=== PATIENT | male | born 1950 | race Caucasian/White ===

== ENCOUNTER 2016-08-02 10:53 | Emergency (ER) | payer OTHER ==
[~2016-08-02] VITALS: Ht 170.2 cm; Wt 82.5 kg
[~2016-08-02 10:53] MED LIST: CIPR500T4 PO; DIAZ10TA4 PO; DIPH1TAB25 PO; METH10TA5 PO; METR500T PO; PANT40TA3 PO; PANT40TA4 PO; TAMS-14 PO
[2016-08-02 11:03] VITALS: Ht 170.2 cm; Wt 82.5 kg
[2016-08-02 12:12] LABS: ADD UMIC NO; URINE BILIRUBIN (Dip) NEGATIVE (NEGATIVE); URINE BLOOD (Dip) NEGATIVE (NEGATIVE); URINE COLOR YELLOW (YELLOW); URINE GLUCOSE (Dip) NEGATIVE (NEGATIVE); URINE KETONES (Dip) NEGATIVE (NEGATIVE); URINE LEUKOCYTE ESTERASE (Dip) NEGATIVE (NEGATIVE); URINE NITRITE (Dip) NEGATIVE (NEGATIVE); URINE TOTAL PROTEIN (Dip) NEGATIVE (NEGATIVE); URINE UROBILINOGEN (Dip) 0.2 E.U./dL (0.1-1.0)
--- NOTE | 2016-08-02 13:07 | RADRPT ---
PROCEDURE: Scrotal ultrasound CLINICAL INDICATION: Bilateral testicular pain. TECHNIQUE: Scrotal ultrasound was performed with sagittal and transverse views. Jarquin scale and co jennifer imaging was performed. Images were reviewed on high resolution PACS monitors. COMPARISON: None available FINDINGS: The right testicle measures 4.3 x 2.3 x 3.1 cm. The left testicle measures 3.8 x 1.8 x 2.6 cm. There is normal size and echogenicity and morphology bilaterally. There is normal blood flow seen bilaterally. The epididymi are normal. There is a trace hydrocele on the right. There is a left-sided varicocele. The soft tissues are unremarkable. No mass or cyst or other abnormality is seen. IMPRESSION: 1. Left-sided varicocele. 2. Trace right hydrocele. 3. Symmetrically normal testes and epididymi. RPTAT: [facility] Physician Rodger Date Time Electronically viewed and signed by Physician Rodger on 08/02/2016 13:07 /
[2016-08-02] MEDS ORDERED: ACET500C5 PO (13:12)
[2016-08-02] MEDS ORDERED: DOXY100T20 PO (13:12)
--- NOTE | 2016-08-02 13:15 | ERD ---
ER Documentation Chief Complaint Date/Time DATE: 08/02/16 TIME: 13:13 Chief Complaint testicular swelling & pain x1mth, tx with abx while in [place]. HPI This 66-year-old male complains of intermittent pain in his right testicle for the last month. He was treated with antibiotics while visiting [place]. Did not have an ultrasound. Pain is intermittent with some possible swelling. Patient has multiple complaints and has additional complaints of some numbness or paresthesias in his right upper extremity extending from his neck. He denies any weakness or bowel bladder incontinence, history of trauma. The pain radiates slightly up the back of his head. She denies any dysuria or penile discharge. ROS All systems reviewed and are negative except as per history of present illness. Medications Home Meds Active Scripts Acetaminophen* (Tylophen*) 500 Mg Capsule, 1 CAP PO Q6H Y for PAIN AND OR ELEVATED TEMP, #20 CAP Prov:CORBIN ISLAS MD 08/02/16 Doxycycline Hyclate* (Doxycycline Hyclate*) 100 Mg Tablet.dr, 100 MG PO BID for 10 Days, TAB Prov:CORBIN ISLAS MD 08/02/16 Pantoprazole* (Protonix*) 40 Mg Tablet.dr, 40 MG PO DAILY, #30 TAB Prov:CASSANDRA LEUNG 10/13/15 Diphenoxylate Hcl-Atropine* (Lomotil*) 1 Tab Tab, 1 TAB PO QID Y for DIARRHEA, # 10 TAB Prov:CASSANDRA LEUNG 10/13/15 Metronidazole* (Flagyl*) 500 Mg Tablet, 500 MG PO TID for 10 Days, TAB Prov:CASSANDRA LEUNG 10/13/15 Ciprofloxacin Hcl* (Ciprofloxacin Hcl*) 500 Mg Tablet, 500 MG PO BID for 10 Days , TAB Prov:CASSANDRA LEUNG 10/13/15 Pantoprazole (Protonix) 40 Mg Tabec, 40 MG PO DAILY for 14 Days, TAB Prov:AMAURY TATE MD 09/29/15 Reported Medications Diazepam* (Diazepam*) 10 Mg Tablet, 10 MG PO DAILY Y for ANXIETY, TAB 09/29/15 Tamsulosin Hcl* (Flomax*) 0.4 Mg Cap.er.24h, 0.4 MG PO DAILY, CAP 7/15/16 Methimazole* (Methimazole*) 10 Mg Tablet, 10 MG PO DAILY, TAB 09/29/15 Allergies Allergies: Coded Allergies: No Known Allergy (Unverified , 09/29/15) PMhx/Soc History of Surgery: Yes (ARM) Anesthesia Reaction: No Hx Neurological Disorder: No Hx Respiratory Disorders: No Hx Cardiac Disorders: Yes (HTN) Hx Miscellaneous Medical Probl: Yes (GASTRIC CRAMPING-IBS, HYPERTHYROID) Hx Alcohol Use: No Hx Substance Use: No Hx Tobacco Use: Yes Smoking Status: Light tobacco smoker Physical Exam Vitals Vital Signs Date Time Temp Pulse Resp B/P Pulse Ox O2 Delivery O2 Flow Rate FiO2 08/02/16 11:03 97.7 88 20 134/91 98 Physical Exam Const: [] Alert, not ill-appearing. Head: Atraumatic Eyes: Normal Conjunctiva ENT: Normal External Ears, Nose and Mouth. Neck: Full range of motion..~ No meningismus. Mild tenderness around the right cervical paraspinous muscles. No midline tenderness. Extremities neurovascular intact. Resp: Clear to auscultation bilaterally Cardio: Regular rate and rhythm, no murmurs Abd: Soft, non tender, non distended. Normal bowel sounds. No visible hernias. No penile discharge. Tenderness nontender normal size bilaterally with no appreciable masses or significant tenderness. Skin: No petechiae or rashes Back: No midline or flank tenderness Ext: No cyanosis, or edema Neur: Awake and alert. Normal gait. No appreciable focal neurologic deficits. Psych: Normal Mood and Affect Results 24 hrs Laboratory Tests Test 08/02/16 11:30 Urine Color YELLOW Urine Clarity CLEAR Urine pH 5.0 Urine Specific [place] >=1.030 Urine Ketones NEGATIVE Urine Nitrite NEGATIVE Urine Bilirubin NEGATIVE Urine Urobilinogen 0.2 E.U./dL Urine Leukocyte Esterase NEGATIVE Urine Hemoglobin NEGATIVE Urine Glucose NEGATIVE% Urine Total Protein NEGATIVE Procedures/MDM Scrotal ultrasound shows no acute abnormalities. Urine is negative. Patient presents with multiple complaints including right upper extremity paresthesias rating for the next suggestive of cervical radicular symptoms. The scrotal pain shows a normal exam. He may have small hydroceles as a cause of pain is noted on the ultrasound. There is no evidence of ischemia, testicular torsion, intratesticular masses or acute abnormalities. We will treat empirically with doxycycline and Tylenol and instructed to follow-up with urologist for persistent symptoms. He should return sooner for worsening pain, swelling, fevers, new worsening symptoms with primary care doctor. Patient was advised to follow-up with primary doctor for further evaluation management of his presumed cervical radicular symptoms as well. Signs or symptoms do not suggest epidural abscess, neurologic deficit, additional emergent causes of presenting complaints. The patient was stable with no new complaints during the ER course. Clinically, there is no current evidence to suggest meningitis, sepsis, acute abdomen, pneumonia, acute coronary syndrome, pulmonary embolism, or any other emergent condition appearing to require further evaluation or hospitalization. The patient should certainly return for any new or worsening symptoms per the aftercare instructions. They should otherwise follow-up with her primary care doctor for reevaluation this week. Departure Diagnosis: Primary Impression: Cervical radiculitis Additional Impression: Pain in testicle Patient Instructions: Neck Pain, No Trauma, Radiculopathy, Cervical, Testicular Pain, Unclear Cause Referrals: FERMIN MIGUEL MD,CATIE Manzanares MD Additional Instructions: Examinations normal today. We will treat for infection. See urology for persistent symptoms. Recommend primary doctor for further evaluation. Neck pain and arm pain likely due to pinched nerve. CORBIN ISLAS MD August 02, 2016 13:15
[2016-08-02 13:24] VITALS: BP 128/89; PULSE 82; RESP 18; TEMP 97.7
== END 2016-08-02 13:24 | disposition home or self-care (01) ==
LOC: FTE 10:53
DX: M54.12 Radiculopathy, cervical region (principal); I10 Essential (primary) hypertension; F17.210 Nicotine dependence, cigarettes, uncomplicated
CPT/HCPCS: 76870; 81003; Z7502

== ENCOUNTER 2016-09-04 11:35 | Emergency (ER) | payer OTHER ==
[~2016-09-04] VITALS: Ht 162.6 cm; Wt 86.0 kg
[~2016-09-04 11:35] MED LIST changes: +ACET500C5 PO; +DOXY100T20 PO
[2016-09-04 11:38] VITALS: Ht 162.6 cm; Wt 86.0 kg
--- NOTE | 2016-09-04 13:50 | ERD ---
ER Documentation Chief Complaint Date/Time DATE: 09/04/16 TIME: 13:43 Chief Complaint recurrent teste pain HPI This is a 66-year-old male presenting to the emergency department complaining of testicular swelling and pain for the past few weeks. Patient states that he was seen at this facility 2 weeks ago received an ultrasound that was negative and was given doxycycline. Patient states that it did not help and he followed up with his primary care physician in which they started him on Flomax. Patient will follow up with a urologist who placed him on an unknown medication as well. Patient states that he does not think it is helping him, he states that it continues to feel warm, painful and swollen. Patient denies fevers, dysuria, hematuria, abdominal pain or flank pain ROS All systems reviewed and are negative except as per history of present illness. Medications Home Meds Active Scripts Ibuprofen* (Ibuprofen*) 600 Mg Tablet, 600 MG PO Q6, #30 TAB Prov:MARIIA LEA PA-C 09/04/16 Acetaminophen* (Tylophen*) 500 Mg Capsule, 1 CAP PO Q6H Y for PAIN AND OR ELEVATED TEMP, #20 CAP Prov:CORBIN ISLAS MD 08/02/16 Doxycycline Hyclate* (Doxycycline Hyclate*) 100 Mg Tablet.dr, 100 MG PO BID for 10 Days, TAB Prov:CORBIN ISLAS MD 08/02/16 Pantoprazole* (Protonix*) 40 Mg Tablet.dr, 40 MG PO DAILY, #30 TAB Prov:CASSANDRA LEUNG 10/13/15 Diphenoxylate Hcl-Atropine* (Lomotil*) 1 Tab Tab, 1 TAB PO QID Y for DIARRHEA, # 10 TAB Prov:CASSANDRA LEUNG 10/13/15 Metronidazole* (Flagyl*) 500 Mg Tablet, 500 MG PO TID for 10 Days, TAB Prov:CASSANDRA LEUNG 10/13/15 Ciprofloxacin Hcl* (Ciprofloxacin Hcl*) 500 Mg Tablet, 500 MG PO BID for 10 Days , TAB Prov:CASSANDRA LEUNG 10/13/15 Pantoprazole (Protonix) 40 Mg Tabec, 40 MG PO DAILY for 14 Days, TAB Prov:AMAURY TATE MD 09/29/15 Reported Medications Diazepam* (Diazepam*) 10 Mg Tablet, 10 MG PO DAILY Y for ANXIETY, TAB 09/29/15 Tamsulosin Hcl* (Flomax*) 0.4 Mg Cap.er.24h, 0.4 MG PO DAILY, CAP 09/29/15 Methimazole* (Methimazole*) 10 Mg Tablet, 10 MG PO DAILY, TAB 09/29/15 Allergies Allergies: Coded Allergies: No Known Allergy (Unverified , 09/29/15) PMhx/Soc History of Surgery: Yes (ARM) Anesthesia Reaction: No Hx Neurological Disorder: No Hx Respiratory Disorders: No Hx Cardiac Disorders: Yes (HTN) Hx Miscellaneous Medical Probl: Yes (GASTRIC CRAMPING-IBS, HYPERTHYROID) Hx Alcohol Use: No Hx Substance Use: No Hx Tobacco Use: Yes Smoking Status: Never smoker Physical Exam Vitals Vital Signs Date Time Temp Pulse Resp B/P Pulse Ox O2 Delivery O2 Flow Rate FiO2 09/04/16 14:35 98.1 76 18 142/69 99 Room Air 09/04/16 11:38 97.5 81 18 150/72 97 Physical Exam General: well-developed/well-nourished, in no apparent distress, non-toxic appearing HENT: NC/AT, bilateral tympanic membrane is normal with good cone of light, nares patent, oropharynx clear without exudates Eyes: Conjunctiva normal, PERRLA, EOMI Neck: Supple, no lymphadenopathy Pulm: CTA bilaterally, no rales, rhonchi, or wheezing heard CV: Normal S1S2, RRR, good capillary refill GI: Soft, non-distended, normal bowel sounds, non-tender : no penile discharge or lesions, no testicular masses or lesions felt Back: No midline tenderness, no masses, No CVAT Ext: No clubbing, cyanosis, or edema Neuro: Alert and Orientated, CN II-IIX intact, gait normal Skin: Intact, normal turgor Psych: Normal mood and mentation Procedures/MDM This is a 66-year-old male presenting to the emergency department complaining of testicular swelling and pain for the past few weeks. Patient states that he was seen at this facility 2 weeks ago received an ultrasound and was given doxycycline. Radiologist stated - 1. Left-sided varicocele. 2. Trace right hydrocele. 3. Symmetrically normal testes and epididymitis Patient states that it did not help and he followed up with his primary care physician in which they started him on Flomax. Patient will follow up with a urologist who placed him on an unknown medication as well. Patient states that he does not think it is helping him. On examination there was no evidence of significant swelling or cellulitis of the testicular region. I have consulted my supervising physician Dr. Cervantes in which he suggested to repeat an ultrasound. Testicular ultrasound was done again, radiologist stated- 1. No significant change in the small left-sided varicocele. 2. 0.2 cm left epididymal head cyst. 3. Unremarkable ultrasound of the testis. I discussed this with the patient that that he is suitable to continue to follow -up with his urologist. Discussed return to the ER for any worsening signs or symptoms. Patient understands and agrees with this plan Departure Diagnosis: Primary Impression: Pain in testicle Condition: Stable MARIIA LEA PA-C Sep 04, 2016 13:50
--- NOTE | 2016-09-04 14:18 | RADRPT ---
PROCEDURE: Scrotal ultrasound CLINICAL INDICATION: Testicular pain. TECHNIQUE: Scrotal ultrasound was performed with sagittal and transverse views. Jarquin scale and co jennifer imaging was performed. Images were reviewed on high resolution PACS monitors. COMPARISON: 08/02/2016. FINDINGS: The right testicle measures 4.3 x 2.2 x 3.2 cm. The left testicle measures 3.8 x 2.3 x 3.2 cm. There is normal size and echogenicity and morphology bilaterally. There is normal blood flow seen bilaterally. There is a 0.2 cm left epididymal head cyst. The right epididymis appears unremarkable. No hydrocele is identified. Once again, there is a small left-sided varicocele demonstrated. The soft tissues are unremarkable. No mass or cyst or other abnormality is seen. IMPRESSION: 1. No significant change in the small left-sided varicocele. 2. 0.2 cm left epididymal head cyst. 3. Unremarkable ultrasound of the testis. RPTAT: [facility] Physician Rodger Date Time Electronically viewed and signed by Physician Rodger on 09/04/2016 14:17 ROBERTO/
[2016-09-04] MEDS ORDERED: IBUP-1542 PO (14:25)
[2016-09-04 14:35] VITALS: BP 142/69; PULSE 76; RESP 18; TEMP 98.1
== END 2016-09-04 14:35 | disposition home or self-care (01) ==
LOC: FTE 11:35
DX: N50.812 Left testicular pain (principal); I10 Essential (primary) hypertension; Z87.891 Personal history of nicotine dependence
CPT/HCPCS: 76870; Z7502

== ENCOUNTER 2016-11-15 11:25 | Emergency (ER) | payer OTHER ==
[~2016-11-15] VITALS: Ht 157.5 cm; Wt 86.0 kg
[~2016-11-15 11:25] MED LIST changes: +IBUP-1542 PO
[2016-11-15 11:35] VITALS: Ht 157.5 cm; Wt 86.0 kg
--- NOTE | 2016-11-15 12:09 | ERD ---
ER Documentation Chief Complaint Date/Time DATE: 11/15/16 TIME: 12:07 Chief Complaint Complains of testicular pain HPI 66-year-old male history of intermittent testicular pain presents with bilateral scrotal pain for 2 days, as well as left leg pain and swelling. He describes as burning pain that goes down his legs. He has been seen outpatient by urologist and has been prescribed finasteride which he takes daily, he also takes Flomax, tramadol for pain. He denies fevers or chills, chest pain, shortness breath. Denies abdominal pain, nausea, vomiting. He denies penile discharge, or dysuria. ROS All systems reviewed and are negative except as per history of present illness. Medications Home Meds Active Scripts Ibuprofen* (Motrin*) 600 Mg Tab, 600 MG PO Q6, #30 TAB Prov:KANDY VELARDE PA-C 11/15/16 Ibuprofen* (Ibuprofen*) 600 Mg Tablet, 600 MG PO Q6, #30 TAB Prov:MARIIA LEA PA-C 09/04/16 Acetaminophen* (Tylophen*) 500 Mg Capsule, 1 CAP PO Q6H Y for PAIN AND OR ELEVATED TEMP, #20 CAP Prov:CORBIN ISLAS MD 08/02/16 Doxycycline Hyclate* (Doxycycline Hyclate*) 100 Mg Tablet.dr, 100 MG PO BID for 10 Days, TAB Prov:CORBIN ISLAS MD 08/02/16 Pantoprazole* (Protonix*) 40 Mg Tablet.dr, 40 MG PO DAILY, #30 TAB Prov:CASSANDRA LEUNG 10/13/15 Diphenoxylate Hcl-Atropine* (Lomotil*) 1 Tab Tab, 1 TAB PO QID Y for DIARRHEA, # 10 TAB Prov:CASSANDRA LEUNG 10/13/15 Metronidazole* (Flagyl*) 500 Mg Tablet, 500 MG PO TID for 10 Days, TAB Prov:CASSANDRA LEUNG 10/13/15 Ciprofloxacin Hcl* (Ciprofloxacin Hcl*) 500 Mg Tablet, 500 MG PO BID for 10 Days , TAB Prov:CASSANDRA LEUNG 10/13/15 Pantoprazole (Protonix) 40 Mg Tabec, 40 MG PO DAILY for 14 Days, TAB Prov:AMAURY TATE MD 09/29/15 Reported Medications Diazepam* (Diazepam*) 10 Mg Tablet, 10 MG PO DAILY Y for ANXIETY, TAB 09/29/15 Tamsulosin Hcl* (Flomax*) 0.4 Mg Cap.er.24h, 0.4 MG PO DAILY, CAP 09/29/15 Methimazole* (Methimazole*) 10 Mg Tablet, 10 MG PO DAILY, TAB 09/29/15 Allergies Allergies: Coded Allergies: acetaminophen (Verified Allergy, Unknown, 11/15/16) PMhx/Soc History of Surgery: Yes (ARM) Anesthesia Reaction: No Hx Neurological Disorder: No Hx Respiratory Disorders: No Hx Cardiac Disorders: Yes (HTN) Hx Miscellaneous Medical Probl: Yes (GASTRIC CRAMPING-IBS, HYPERTHYROID) Hx Alcohol Use: No Hx Substance Use: No Hx Tobacco Use: Yes Smoking Status: Current some day smoker Physical Exam Vitals Vital Signs Date Time Temp Pulse Resp B/P Pulse Ox O2 Delivery O2 Flow Rate FiO2 11/15/16 11:35 98.3 81 20 129/77 97 Physical Exam General: Well-developed, well-nourished. The patient appears in no acute distress. HEENT: Head is normocephalic, atraumatic. No scleral icterus. Pupils are equal , round, and reactive. Oral mucous membranes are moist. No pharyngeal erythema. Neck: Supple. Nontender. Lungs: Clear to auscultation. Normal air movement. Heart: Regular rate and rhythm. S1 and S2 are normal. No murmurs, gallops, or rubs. Abdomen: Soft, nontender, nondistended. Bowel sounds are normoactive. : Bilateral scrotal pain with tenderness, no swelling, no masses appreciated. Extremities: Varicose veins seen on the left lower extremity, pulses bilaterally are equal. No cyanosis. Capillary refill less than 2 seconds to toes neurologic: Alert and oriented 3. No focal deficits. Skin: Normal turgor. No rash or lesions. Results 24 hrs Laboratory Tests Test 11/15/16 12:25 Urine Color YELLOW Urine Clarity CLEAR Urine pH 6.0 Urine Specific [place] 1.017 Urine Ketones NEGATIVEmg/dL Urine Nitrite NEGATIVEmg/dL Urine Bilirubin NEGATIVEmg/dL Urine Urobilinogen 1+mg/dL Urine Leukocyte Esterase TRACELeu/ul Urine Microscopic RBC 1/HPF Urine Microscopic WBC 3/HPF Urine Mucus FEW/HPF Urine Hemoglobin NEGATIVEmg/dL Urine Glucose NEGATIVEmg/dL Urine Total Protein NEGATIVEmg/dl Current Medications Medications (Trade) Dose Ordered Sig/Wero Route PRN Reason Start Time Stop Time Status Last Admin Dose Admin Acetaminophen/ Hydrocodone Bitart ([place] (5/325)) 1 tab ONCE ONCE PO 11/15/16 12:30 11/15/16 12:30 DC Ibuprofen (Motrin) 600 mg ONCE ONCE PO 11/15/16 12:30 11/15/16 12:31 DC 11/15/16 12:15 DIAGNOSTIC IMAGING REPORT Patient: DOMENICO PENA : 1950 Age: 66 Sex: M MR #: [id number] DOS: 11/15/16 1205 Ordering MD: KANDY VELARDE PA-C Location: [facility] Room/Bed: PROCEDURE: Scrotal ultrasound CLINICAL INDICATION: Bilateral scrotal pain. TECHNIQUE: Scrotal ultrasound was performed with sagittal and transverse views. Jarquin scale and color imaging was performed. Images were reviewed on high resolution PACS monitors. COMPARISON: 09/04/2016. FINDINGS: The right testicle measures 4.1 x 2.2 x 2.6 cm. The left testicle measures 4.1 x 1.9 x 3.0 cm. There is normal size and echogenicity and morphology bilaterally. There is normal blood flow seen bilaterally. There is a 0.3 cm right epididymal head cyst and a 0.2 cm left epididymal head cyst. No hydrocele is identified. Once again, there is a varicocele present which increases in size with Valsalva maneuver. The soft tissues are unremarkable. No mass or cyst or other abnormality is seen. IMPRESSION: 1. No significant change in left-sided varicocele. 2. Tiny bilateral epididymal head cysts. 3. Symmetrically normal-appearing testis. RPTAT: A[facility] Physician Rodger Date Time Electronically viewed and signed by Physician Rodger on 11/15/2016 13: 24 JH/ CC: KANDY VLEARDE PA-C DIAGNOSTIC IMAGING REPORT Patient: DOMENICO PENA : 1950 Age: 66 Sex: M MR #: [id number] DOS: 11/15/16 1205 Ordering MD: KANDY VELARDE PA-C Location: [facility] Room/Bed: PROCEDURE: US Lower extremity Venous. CLINICAL INDICATION: Left leg edema, pain TECHNIQUE: Multiple sonographic images of the left lower extremity deep venous system was obtained utilizing grayscale, color-flow, compressive sonography and doppler imaging with augmentation. The images were reviewed on a PACS workstation. COMPARISON: None. FINDINGS: There is normal compressibility and flow within the left common femoral, femoral , posterior tibial, peroneal and popliteal veins. RPTAT: AA IMPRESSION: No sonographic evidence for deep venous thrombosis. .Den Garcia MD, Date Time Electronically viewed and signed by .Den Garcia MD, on 11/15/2016 12: 46 .S/ CC: KANDY VELARDE PA-C Procedures/MDM 66 year old male comes in with left testicular pain and left varicose veins, presents with varicocele of the left testicular, unchanged from the previous visit. There is normal blood flow to both testes. There are also bilateral epididymal head cysts seen on the ultrasound. No evidence of torsion, testicular masses. Patient does not have any urinary tract infection, no signs of epididymitis. Patient has had the same symptoms, same ultrasound findings in the past, and he is aware. His varicocele, epididymal cyst, no evidence of any testicular torsion, cellulitis, Yana's, no genitourinary emergency, patient may be discharged home. He also has varicose veins on the left lower extremity , no evidence of DVT. Departure Diagnosis: Primary Impression: Left varicocele Additional Impression: Varicose veins of left lower extremity Condition: Good KANDY VELARDE PA-C Nov 15, 2016 12:09
[2016-11-15] MEDS ORDERED: HYDROCODONE/APAP (5/325) TAB PO ONE (12:30)
[2016-11-15] MEDS ORDERED: IBUPROFEN 600 MG TAB PO ONE (12:30)
[2016-11-15 12:37] LABS: ADD UMIC YES; UR ASCORBIC ACID NEGATIVE (NEGATIVE); UR BILIRUBIN (Dip) NEGATIVE (NEGATIVE); UR BLOOD (Dip) NEGATIVE (NEGATIVE); UR CLARITY CLEAR (CLEAR); UR COLOR YELLOW (YELLOW); UR GLUCOSE (Dip) NEGATIVE (NEGATIVE); UR KETONES (Dip) NEGATIVE (NEGATIVE); UR LEUKOCYTE ESTERASE (Dip) TRACE Leu/ul (NEGATIVE); UR MUCUS FEW /HPF (NONE SEEN); UR NITRITE (Dip) NEGATIVE (NEGATIVE); UR RBC 1 /HPF (0-5); UR SPECIFIC GRAVITY (Dip) 1.017 (1.003-1.030); UR TOTAL PROTEIN (Dip) NEGATIVE (NEGATIVE); UR UROBILINOGEN (Dip) 1+ mg/dL (NEGATIVE)
--- NOTE | 2016-11-15 12:46 | RADRPT ---
PROCEDURE: US Lower extremity Venous. CLINICAL INDICATION: Left leg edema, pain TECHNIQUE: Multiple sonographic images of the left lower extremity deep venous system was obtained utilizing grayscale, color-flow, compressive sonography and doppler imaging with augmentation. The images were reviewed on a PACS workstation. COMPARISON: None. FINDINGS: There is normal compressibility and flow within the left common femoral, femoral, posterior tibial, peroneal and popliteal veins. RPTAT: AA IMPRESSION: No sonographic evidence for deep venous thrombosis. .Den Garcia MD, MD Date Time Electronically viewed and signed by .Den Garcia MD, on 11/15/2016 12:46 .S/
--- NOTE | 2016-11-15 13:24 | RADRPT ---
PROCEDURE: Scrotal ultrasound CLINICAL INDICATION: Bilateral scrotal pain. TECHNIQUE: Scrotal ultrasound was performed with sagittal and transverse views. Jarquin scale and co jennifer imaging was performed. Images were reviewed on high resolution PACS monitors. COMPARISON: 09/04/2016. FINDINGS: The right testicle measures 4.1 x 2.2 x 2.6 cm. The left testicle measures 4.1 x 1.9 x 3.0 cm. There is normal size and echogenicity and morphology bilaterally. There is normal blood flow seen bilaterally. There is a 0.3 cm right epididymal head cyst and a 0.2 cm left epididymal head cyst. No hydrocele is identified. Once again, there is a varicocele present which increases in size with Valsalva maneuver. The soft tissues are unremarkable. No mass or cyst or other abnormality is seen. IMPRESSION: 1. No significant change in left-sided varicocele. 2. Tiny bilateral epididymal head cysts. 3. Symmetrically normal-appearing testis. RPTAT: AACC Physician Rodger Date Time Electronically viewed and signed by Physician Rodger on 11/15/2016 13:24 ROBERTO/
[2016-11-15] MEDS ORDERED: IBUP-1542 PO (14:14)
[2016-11-15 14:32] VITALS: BP 125/72; PULSE 70; RESP 18; TEMP 98.3
== END 2016-11-15 14:33 | disposition home or self-care (01) ==
LOC: FTE 11:25
DX: I86.1 Scrotal varices (principal); I83.812 Varicose veins of left lower extremity with pain; I10 Essential (primary) hypertension; F17.210 Nicotine dependence, cigarettes, uncomplicated
CPT/HCPCS: 76870; 81001; 93971; Z7502; Z7610

== ENCOUNTER 2017-11-11 09:47 | Emergency (ER) | END 2017-11-11 12:01 | disposition home or self-care (01) ==

== ENCOUNTER 2018-01-13 09:47 | Emergency (ER) | END 2018-01-13 12:24 | disposition home or self-care (01) ==

== ENCOUNTER 2018-08-15 08:24 | Emergency (ER) | payer MEDICARE, OTHER ==
[~2018-08-15] VITALS: Wt 80.0 kg
[~2018-08-15 08:24] MED LIST changes: +CYCL10TA7 PO; +TRAM50TA2 PO
[2018-08-15 08:26] VITALS: BP 135/79; PULSE 78; RESP 18
[2018-08-15] MEDS ORDERED: LEVO500T48 PO (10:47)
[2018-08-15] MEDS ORDERED: CIPR500T4 PO (10:49)
[2018-08-15] MEDS ORDERED: CIPROFLOXACIN 500 MG TAB PO ONE (11:00)
--- NOTE | 2018-08-15 11:21 | ERD ---
ER Documentation Chief Complaint Chief Complaint urinary retention, send by pmd for bladder us? HPI This is a 68-year-old male who presents to the ED complaining of urinary retention and pelvic pain x2 days. Patient was sent here by his primary care doctor, Dr. Marks, for a bladder ultrasound to rule out urinary retention. Patient takes Flomax and finasteride for BPH. He follows with urologist closely. He states he was able to dribble and hesitancy this morning. He also reports associated urgency. He has been using CBD oil to help with his symptoms which has helped. Denies any fevers, chills, abdominal pain, nausea, vomiting, flank pain or any other symptoms. He also reports history of bilateral testicular swelling. He takes tramadol for this. He has been seen here multiple times for this with testicular ultrasounds that have revealed a left varicocele, otherwise normal. ROS All systems reviewed and are negative except as per history of present illness. Medications Home Meds Active Scripts Ciprofloxacin Hcl* (Ciprofloxacin Hcl*) 500 Mg Tablet, 500 MG PO BID for 10 Days, TAB Prov:NATACHA ARGUELLO PA-C 08/15/18 Ibuprofen* (Motrin*) 600 Mg Tab, 600 MG PO Q6, #30 TAB Prov:CORBIN ISLAS MD 01/13/18 Cyclobenzaprine Hcl* (Cyclobenzaprine Hcl*) 10 Mg Tablet, 10 MG PO TID, #20 TAB Prov:CORBIN ISLAS MD 01/13/18 Tramadol HCl (Tramadol HCl) 50 Mg Tablet, 50 MG PO Q6, #20 TAB Prov:DARCIE CARDONA 11/11/17 Ibuprofen* (Motrin*) 600 Mg Tab, 600 MG PO Q6, #30 TAB Prov:KANDY VELARDEC 11/15/16 Ibuprofen* (Ibuprofen*) 600 Mg Tablet, 600 MG PO Q6, #30 TAB Prov:MARIIA LEAC 09/04/16 Acetaminophen* (Tylophen*) 500 Mg Capsule, 1 CAP PO Q6H PRN for PAIN AND OR ELEVATED TEMP, #20 CAP Prov:CORBIN ISLAS MD 08/02/16 Doxycycline Hyclate* (Doxycycline Hyclate*) 100 Mg Tablet.dr 100 MG PO BID for 10 Days, TAB Prov:CORBIN ISLAS MD 08/02/16 Pantoprazole* (Protonix*) 40 Mg Tablet.dr, 40 MG PO DAILY, #30 TAB Prov:CASSANDRA LEUNG MD 10/13/15 Diphenoxylate Hcl-Atropine* (Lomotil*) 1 Tab Tab, 1 TAB PO QID PRN for DIARRHEA, #10 TAB Prov:CASSANDRA LEUNG MD 10/13/15 Metronidazole* (Flagyl*) 500 Mg Tablet, 500 MG PO TID for 10 Days, TAB Prov:CASSANDRA LEUNG MD 10/13/15 Ciprofloxacin Hcl* (Ciprofloxacin Hcl*) 500 Mg Tablet, 500 MG PO BID for 10 Days, TAB Prov:CASSANDRA LEUNG MD 10/13/15 Pantoprazole (Protonix) 40 Mg Tabec, 40 MG PO DAILY for 14 Days, TAB Prov:AMAURY TATE MD 09/29/15 Reported Medications Diazepam* (Diazepam*) 10 Mg Tablet, 10 MG PO DAILY PRN for ANXIETY, TAB 09/29/15 Tamsulosin Hcl* (Flomax*) 0.4 Mg Cap.er.24h, 0.4 MG PO DAILY, CAP 09/29/15 Methimazole* (Methimazole*) 10 Mg Tablet, 10 MG PO DAILY, TAB 09/29/15 Allergies Allergies: Coded Allergies: acetaminophen (Verified Allergy, Unknown, 11/15/16) PMhx/Soc History of Surgery: Yes (ARM) Anesthesia Reaction: No Hx Neurological Disorder: No Hx Respiratory Disorders: No Hx Cardiac Disorders: Yes (HTN) Hx Miscellaneous Medical Probl: Yes (GASTRIC CRAMPING-IBS, HYPERTHYROID) Hx Alcohol Use: No Hx Substance Use: Yes (marijuana) Hx Tobacco Use: Yes (cig ) Smoking Status: Current some day smoker Physical Exam Vitals Vital Signs Date Temp Pulse Resp B/P (MAP) Pulse Ox O2 O2 Flow FiO2 Time Delivery Rate 08/15/18 98.1 78 18 135/79 99 08:26 (97) Physical Exam Const: No acute distress Head: Atraumatic Eyes: Normal Conjunctiva ENT: Normal External Ears, Nose and Mouth. Neck: Full range of motion. No meningismus. Resp: Clear to auscultation bilaterally Cardio: Regular rate and rhythm, no murmurs Abd: Soft, + mid suprapubic tenderness to palpation. non distended. Normal bowel sounds. Bowel sounds active. No rebound, no guarding. Skin: No petechiae or rashes Back: No midline or flank tenderness Ext: No cyanosis, or edema Neur: Awake and alert Psych: Normal Mood and Affect Results 24 hrs Laboratory Tests Test 08/15/18 09:45 Urine Color FLO Urine Clarity SLIGHTLY CLOUDY Urine pH 5.0 Urine Specific [place] 1.029 Urine Ketones TRACE mg/dL Urine Nitrite NEGATIVE mg/dL Urine Bilirubin 1+ mg/dL Urine Urobilinogen 2+ mg/dL Urine Leukocyte Esterase 1+ Chetan/ul Urine Microscopic RBC 1 /HPF Urine Microscopic WBC 7 /HPF Urine Mucus MANY /HPF Urine Hemoglobin NEGATIVE mg/dL Urine Glucose NEGATIVE mg/dL Urine Total Protein 1+ mg/dl Current Medications Medications Dose Sig/Wero Start Time Status Last (Trade) Ordered Route PRN Stop Time Admin Dose Reason Admin 500 mg ONCE ONCE 08/15/18 DC 08/15/18 Ciprofloxacin PO 11:00 08/15/18 11:02 (Cipro) 11:01 Procedures/MDM LABS Urine: 1+ Leuk esterase, pyuria DIAGNOSTIC IMAGING: PROCEDURE: Pelvic ultrasound CLINICAL INDICATION: Urinary retention. BPH. TECHNIQUE: Limited sonography of the urinary bladder was performed. COMPARISON: Not FINDINGS: The urinary bladder measures 5.6 x 1.2 x 2.3 cm with an estimated volume of 10 cc. No stone or masses seen. Bilateral ureteral jets were present. IMPRESSION: No evidence of urinary retention. MEDICAL DECISION MAKING: This is a 68-year-old male with history of BPH presents with acute urinary reten tion. Patient was able to provide a clean catch urine sample without the need for catheterization. Bladder ultrasound reveals 10 cc of urine, without evidence of urinary retention. UA did show evidence of mild cystitis. Given patient's symptoms, will treat as acute bacterial prostatitis. He was given his first dose here and discharged home with same. He has no fever here and vital signs are stable. I have low suspicion for pyelonephritis, nephrolithiasis, sepsis, testicular torsion or any other emergent GI/ process. Patient has an appointment to see his urologist on Friday. He was given copies of his ultrasound results to provide during his appointment. Strict return precautions were discussed. PRESCRIPTIONS: Ciprofloxacin SPECIALIST FOLLOW UP RECOMMENDED: Urologist Patient has been advised to follow up with primary care in 1-2 days. Smoking Cessation Therapy: Pt. was lectured for greater than 3 minutes on the health risks of continued smoking and the benefits of cessation. Blood Pressure Assessment: Patient's blood pressure was elevated (>120/80) but appears stable without evidence of hypertension emergency or urgency. The patient was counseled about the risks of hypertension and urged to pursue outpatient monitoring and therapy within a week with their primary care physician. Departure Diagnosis: Primary Impression: Prostatitis Prostatitis type: acute Qualified Codes: N41.0 - Acute prostatitis Condition: Stable Patient Instructions: Bacterial Prostatitis, Urinary Retention, Male Additional Instructions: Continue taking the Flomax and finasteride as prescribed by primary care doctor. Take copies of your ultrasound and take it to your appointment with your urologist on Friday. Take the antibiotics and prescribed you for the next 10 days. Monitor for any worsening symptoms, fevers, chills, nausea vomiting, abdominal pain or any other symptoms. NATACHA ARGUELLO PA-C Aug 15, 2018 11:21
== END 2018-08-15 11:12 | disposition home or self-care (01) ==
LOC: FTE 08:24
DX: N41.0 Acute prostatitis (principal); I10 Essential (primary) hypertension; F17.210 Nicotine dependence, cigarettes, uncomplicated
CPT/HCPCS: 76856; 81001; 87086